=== PATIENT | male | born 1980 | race Caucasian/White ===

== ENCOUNTER 2017-09-08 10:18 | Emergency (ER) | payer SELFPAY ==
--- NOTE | 2017-09-08 10:20 | ER Report ---
History and Physical Time Seen By MD: 10:20 HPI/NALINI CHIEF COMPLAINT: Lightheaded and dizzy HISTORY OF PRESENT ILLNESS: Patient is a 36-year-old male who is here visiting his mother from [place]. He is presents to the emergency department because of an episode of lightheadedness while driving today. He states he's had these episodes over the past few months but they are becoming increasingly more frequent. He describes feeling lightheaded as if he is going to pass out although he is never had a syncopal episode. He does admit to some palpitations that occur with these episodes but denies any true chest pain. He denies headaches. Apparently he has history of the large atrial septal defect that was repaired in childhood. He is last cardiac echo was approximately 4-5 years ago and reported to be "normal". Patient does admit to drinking daily and smokes a pipe occasionally. Patient does have episodic abdominal discomfort associated with nausea. Patient denies any black or tarry stools. Patient has relatives that had similar symptoms and had brain cancer. This is his major concern. REVIEW OF SYSTEMS: Constitutional: No fever, no chills. Eyes: No discharge. ENT: No sore throat. Cardiovascular: No chest pain, occasional palpitations. Respiratory: No cough, no shortness of breath. Gastrointestinal: No abdominal pain, no vomiting. Nausea Genitourinary: No hematuria. Musculoskeletal: No back pain. Skin: No rashes. Neurological: No headache. Light headedness Allergies: Coded Allergies: No Known Drug Allergies (Unverified , 09/08/17) Home Meds No Active Prescriptions or Reported Meds Past Medical/Surgical History Noncontributory Constitutional Vital Sign - Last 24 Hours 09/08/17 09/08/17 09/08/17 09/08/17 10:23 10:24 10:30 10:48 Temp 98.3 Pulse 80 70 Resp 18 11 B/P (MAP) 142/87 (105) 142/87 130/82 (98) Pulse Ox 97 95 O2 Delivery Room Air 09/08/17 09/08/17 09/08/17 09/08/17 11:00 11:18 11:23 11:30 Pulse 75 71 Resp 22 9 B/P (MAP) 127/87 (100) 114/93 (100) Pulse Ox 97 98 5/509/08/17 09/08/17 12:32 12:38 12:43 Pulse 79 73 B/P (MAP) 123/83 (96) Pulse Ox 94 94 Physical Exam General/Constitutional: Patient is awake, alert, nontoxic and in no acute respiratory distress. Head: Normocephalic and atraumatic. Eyes: Conjunctival clear, Pupils are equal and reactive to light. Extraocular muscles are intact and symmetrical. Sclera are clear and anicteric. Ears:External canals are clear. Tympanic membranes are clear with normal landmarks and light reflex. Nares: No rhinorrhea or bleeding. Turbinates are pink and moist. Oropharyngeal: Mucous membranes are moist. There is no pharyngeal erythema or exudate. There are no palatal petechiae. Uvula is midline and symmetrical. Neck: Supple, no adenopathy. Cardiovascular: Heart is regular rate and rhythm without audible murmurs, rubs or gallops. Pulmonary: Lungs are clear to auscultation bilaterally. There are no wheezes, rales, or rhonchi. Chest rise is symmetrical Abdomen: Soft, nontender, no guarding or peritoneal signs. Extremities: No gross deformities, No peripheral cyanosis. Able to move all 4 extremities. Neuro: Alert and oriented X3, Cranial nerves 2 thru 12 are intact and symmetrical. Patient has normal gait. Skin: No rashes, skin is warm dry and well perfused. Medical Decision Making Data Points Result Diagram: 09/08/17 1112 09/08/17 1112 Laboratory Hematology Test 09/08/17 11:12 Red Blood Count 6.02 M/uL (4.00-5.60) Mean Corpuscular Volume 86.5 fL (80.0-96.0) Mean Corpuscular Hemoglobin 30.9 pg (26.0-33.0) Mean Corpuscular Hemoglobin Concent 35.7 g/dL (32.0-36.0) Red Cell Distribution Width 12.9 % (11.5-14.5) Mean Platelet Volume 7.6 fL (7.2-11.1) Neutrophils (%) (Auto) 81.9 % (39.4-72.5) Lymphocytes (%) (Auto) 11.7 % (17.6-49.6) Monocytes (%) (Auto) 5.4 % (4.1-12.4) Eosinophils (%) (Auto) 0.4 % (0.4-6.7) Basophils (%) (Auto) 0.6 % (0.3-1.4) Nucleated RBC Relative Count (auto) 0.1 /100WBC Neutrophils # (Auto) 6.6 K/uL (2.0-7.4) Lymphocytes # (Auto) 1.0 K/uL (1.3-3.6) Monocytes # (Auto) 0.4 K/uL (0.3-1.0) Eosinophils # (Auto) 0.0 K/uL (0.0-0.5) Basophils # (Auto) 0.1 K/uL (0.0-0.1) Nucleated RBC Absolute Count (auto) 0.01 K/uL Urine Color Straw Urine Clarity Clear Urine pH 8.0 pH (4.8-9.5) Urine Specific Reardan 1.006 Urine Protein Negative mg/dL (NEGATIVE) Urine Glucose (UA) Negative mg/dL (NEGATIVE) Urine Ketones Negative mg/dL (NEGATIVE) Urine Blood Negative (NEGATIVE) Urine Nitrite Negative (NEGATIVE) Urine Bilirubin Negative (NEGATIVE) Urine Urobilinogen Negative mg/dL (0.2-1.9) Urine Leukocyte Esterase Negative (NEGATIVE) Urine RBC None /HPF (0-2/HPF) Urine WBC None /HPF (0-5/HPF) Urine Squamous Epithelial Cells None /LPF (</=FEW) Urine Bacteria Negative /HPF (NONE-FEW) Urine Mucus None /HPF (NONE-FEW) Sodium Level 143 mmol/L (137-145) Potassium Level 4.3 mmol/L (3.5-5.0) Chloride Level 104 mmol/L (98-107) Carbon Dioxide Level 25 mmol/L (22-30) Blood Urea Nitrogen 12 mg/dl (9-21) Creatinine 1.00 mg/dl (0.66-1.25) Glomerular Filtration Rate Calc > 60.0 Random Glucose 117 mg/dl (75-110) Calcium Level 10.5 mg/dl (8.4-10.2) Total Bilirubin 0.9 mg/dl (0.2-1.3) Aspartate Amino Transf (AST/SGOT) 23 U/L (0-35) Alanine Aminotransferase (ALT/SGPT) 23 U/L (0-56) Alkaline Phosphatase 69 U/L (0-126) Troponin I < 0.012 ng/ml Total Protein 8.2 gm/dl (6.3-8.2) Albumin 5.1 g/dl (3.5-5.0) Lipase 119 U/L (23-300) Chemistry Test 09/08/17 11:12 White Blood Count 8.1 k/uL (4.5-11.0) Red Blood Count 6.02 M/uL (4.00-5.60) Hemoglobin 18.6 g/dL (14.0-18.0) Hematocrit 52.1 % (42.0-52.0) Mean Corpuscular Volume 86.5 fL (80.0-96.0) Mean Corpuscular Hemoglobin 30.9 pg (26.0-33.0) Mean Corpuscular Hemoglobin Concent 35.7 g/dL (32.0-36.0) Red Cell Distribution Width 12.9 % (11.5-14.5) Platelet Count 173 K/uL (150-450) Mean Platelet Volume 7.6 fL (7.2-11.1) Neutrophils (%) (Auto) 81.9 % (39.4-72.5) Lymphocytes (%) (Auto) 11.7 % (17.6-49.6) Monocytes (%) (Auto) 5.4 % (4.1-12.4) Eosinophils (%) (Auto) 0.4 % (0.4-6.7) Basophils (%) (Auto) 0.6 % (0.3-1.4) Nucleated RBC Relative Count (auto) 0.1 /100WBC Neutrophils # (Auto) 6.6 K/uL (2.0-7.4) Lymphocytes # (Auto) 1.0 K/uL (1.3-3.6) Monocytes # (Auto) 0.4 K/uL (0.3-1.0) Eosinophils # (Auto) 0.0 K/uL (0.0-0.5) Basophils # (Auto) 0.1 K/uL (0.0-0.1) Nucleated RBC Absolute Count (auto) 0.01 K/uL Urine Color Straw Urine Clarity Clear Urine pH 8.0 pH (4.8-9.5) Urine Specific Reardan 1.006 Urine Protein Negative mg/dL (NEGATIVE) Urine Glucose (UA) Negative mg/dL (NEGATIVE) Urine Ketones Negative mg/dL (NEGATIVE) Urine Blood Negative (NEGATIVE) Urine Nitrite Negative (NEGATIVE) Urine Bilirubin Negative (NEGATIVE) Urine Urobilinogen Negative mg/dL (0.2-1.9) Urine Leukocyte Esterase Negative (NEGATIVE) Urine RBC None /HPF (0-2/HPF) Urine WBC None /HPF (0-5/HPF) Urine Squamous Epithelial Cells None /LPF (</=FEW) Urine Bacteria Negative /HPF (NONE-FEW) Urine Mucus None /HPF (NONE-FEW) Glomerular Filtration Rate Calc > 60.0 Calcium Level 10.5 mg/dl (8.4-10.2) Total Bilirubin 0.9 mg/dl (0.2-1.3) Aspartate Amino Transf (AST/SGOT) 23 U/L (0-35) Alanine Aminotransferase (ALT/SGPT) 23 U/L (0-56) Alkaline Phosphatase 69 U/L (0-126) Troponin I < 0.012 ng/ml Total Protein 8.2 gm/dl (6.3-8.2) Albumin 5.1 g/dl (3.5-5.0) Lipase 119 U/L (23-300) Urinalysis Test 09/08/17 11:12 Urine Color Straw Urine Clarity Clear Urine pH 8.0 pH (4.8-9.5) Urine Specific Reardan 1.006 Urine Protein Negative mg/dL (NEGATIVE) Urine Glucose (UA) Negative mg/dL (NEGATIVE) Urine Ketones Negative mg/dL (NEGATIVE) Urine Blood Negative (NEGATIVE) Urine Nitrite Negative (NEGATIVE) Urine Bilirubin Negative (NEGATIVE) Urine Urobilinogen Negative mg/dL (0.2-1.9) Urine Leukocyte Esterase Negative (NEGATIVE) Urine RBC None /HPF (0-2/HPF) Urine WBC None /HPF (0-5/HPF) Urine Squamous Epithelial Cells None /LPF (</=FEW) Urine Bacteria Negative /HPF (NONE-FEW) Urine Mucus None /HPF (NONE-FEW) EKG/Imaging EKG Interpretation EKG shows normal sinus rhythm with ventricular rate of 84 bpm. Monitor Interpretation: Normal Sinus Rhythm Imaging FACILITY: [facility] PATIENT NAME: Braydon Prieto : 1980 MR: [id number] V: [id number] EXAM DATE: ORDERING PHYSICIAN: JON DEVI TECHNOLOGIST: Location: [facility] Patient: Braydon Prieto : 1980 Visit/Account:[id number] Date of Sevice: 09/08/2017 EXAMINATION: MRI Brain without IV contrast 09/08/2017 11:03 AM HISTORY: Dizziness, vertigo, blurry vision. Numbness in hands and feet. TECHNIQUE: Multi-planar, multi-sequence brain MRI was performed without IV contrast administration. COMPARISON STUDIES: none FINDINGS: Ventricles / sulci / fissures: negative Masses / hemorrhage / midline shift: negative White matter: negative Sams-white differentiation: negative Extra-axial spaces: negative Calvarium: negative Vascular structures: negative Sagittal midline structures: negative Paranasal sinuses / mastoid air cells: Mild mucosal thickening within paranasal sinuses most notably within the anterior ethmoids on the left. Rightward nasal septal deviation. Orbits: negative Visualized upper neck: negative IMPRESSION: 1. Unremarkable intracranial unenhanced MRI evaluation. No evidence of mass, stroke, or hemorrhage. 2. Mild likely chronic features of paranasal sinusitis. Report Dictated By: Gee Ross MD at 09/08/2017 12:36 PM Report E-Signed By: Gee Ross MD at 09/08/2017 12:40 PM WSN:[id number] ED Course/Re-evaluation Clinical Indication for ER IV: Hydration, IV Access ED Course 09/08/2017 11:37:11 am plan at this time will be workup to include CBC, has a metabolic panel with lipase. We will also obtain urinalysis and EKG. Perform MRI of the brain Decision to Disposition Date: September 08, 2017 Decision to Disposition Time: 12:50 Depart Departure Latest Vital Signs Vital Signs Date Time Temp Pulse Resp B/P (MAP) Pulse Ox O2 Delivery O2 Flow Rate FiO2 09/08/17 12:43 73 94 09/08/17 12:32 123/83 (96) 09/08/17 11:23 9 09/08/17 10:24 98.3 Room Air Impression: Primary Impression: Dizziness Condition: Improved Disposition: HOME OR SELF-CARE New Scripts No Active Prescriptions or Reported Meds Patient Instructions: Dizziness (ED) Additional Instructions: I recommend that he establish care with a primary care physician and your hometown of [place]. If the symptoms persist you should continue to follow up additional testing. JON DEVI MD September 08, 2017 10:20
[2017-09-08] MEDS ORDERED: NS(*) 0.9% 1000 ML BAG 1,000 ML IV ONE (11:03)
[2017-09-08] MEDS ORDERED: MECLIZINE HCL 25 MG TAB PO ONE (11:05)
--- NOTE | 2017-09-08 11:25 | EKG ---
FACILITY: [facility] [place] PATIENT NAME: QUINN BURNHAM : [id number] MR: [id number] V: [id number] EXAM DATE: ORDERING PHYSICIAN: JON DEVI TECHNOLOGIST: CHANDRAKANT Test Reason : DIZZY Blood Pressure : / mmHG Vent. Rate : 084 BPM Atrial Rate : 084 BPM P-R Int : 136 ms QRS Dur : 102 ms QT Int : 364 ms P-R-T Axes : 042 067 042 degrees QTc Int : 430 ms Sinus rhythm Nonspecific interventricular conduction delay Nonspecific ST findings inferolateral leads No previous ECGs available Confirmed by JUDIE COLLINS ([id number]) on 09/08/2017 2:09:45 PM Referred By: GISSELLE Confirmed By:JUDIE COLLINS
[2017-09-08 11:26] LABS: PLATELET COUNT, AUTOMATED 173 K/uL (150-450)
--- NOTE | 2017-09-08 11:53 | RADIOLOGY IMAGING REPORT ---
FACILITY: [facility] [place] PATIENT NAME: Braydon Prieto : 1980 MR: [id number] V: [id number] EXAM DATE: ORDERING PHYSICIAN: JON DEVI [place]CHNOLOGIST: [place] [facility] [place] Braydon Pri[place] : 1980 Visit/Account:[id number] Date of Sevice: 09/08/2017 Exam type: ORBITS FOREIGN BODY 1 VIEW History: Comparison: None. Findings: There are no radiopaque foreign bodies projecting over the orbits which would preclude this patient u ndergoing MRI. Paranasal sinuses are well aerated. Nasal septum is deviated towards the right. Left f rontal sinus is hypoplastic. Metallic dental hardware is noted. IMPRESSION: 1. There are no radiopaque foreign bodies projecting of the orbits which would preclude this patient undergoing MRI. Report Dictated By: Thomas Wills MD at 09/08/2017 11:50 AM Report E-Signed By: Thomas Wills MD at 09/08/2017 11:51 AM WSN:[id number]
[2017-09-08 12:32] VITALS: BP 123/83
--- NOTE | 2017-09-08 12:44 | RADIOLOGY IMAGING REPORT ---
FACILITY: [facility] PATIENT NAME: Braydon Prieto : 1980 MR: [id number] V: [id number] EXAM DATE: ORDERING PHYSICIAN: JON DEVI TECHNOLOGIST: Location: [facility] Patient: Braydon Prieto : 1980 Visit/Account:[id number] Date of Sevice: 09/08/2017 EXAMINATION: MRI Brain without IV contrast 09/08/2017 11:03 AM HISTORY: Dizziness, vertigo, blurry vision. Numbness in hands and feet. TECHNIQUE: Multi-planar, multi-sequence brain MRI was performed without IV contrast administration. COMPARISON STUDIES: none FINDINGS: Ventricles / sulci / fissures: negative Masses / hemorrhage / midline shift: negative White matter: negative Sams-white differentiation: negative Extra-axial spaces: negative Calvarium: negative Vascular structures: negative Sagittal midline structures: negative Paranasal sinuses / mastoid air cells: Mild mucosal thickening within paranasal sinuses most notably within the anterior ethmoids on the left. Rightward nasal septal deviation. Orbits: negative Visualized upper neck: negative IMPRESSION: 1. Unremarkable intracranial unenhanced MRI evaluation. No evidence of mass, stroke, or hemorrhage. 2. Mild likely chronic features of paranasal sinusitis. Report Dictated By: Gee Ross MD at 09/08/2017 12:36 PM Report E-Signed By: Gee Ross MD at 09/08/2017 12:40 PM WSN:[id number]
--- NOTE | 2017-09-09 15:59 | RT HOLTER TEST ---
[place] [facility] [place] QUINN BURNHAM : [id number] MR: [id number] V: [id number] EXAM DATE: ORDERING PHYSICIAN: JON DEVI TECHNOLOGIST: Kristel Hook-up date: 2017-09-08 13:20:00 Duration: 24:28:00 Test Indications: DIZZINESS Medications: NONE 45531 QRS complexes 24 Ventricular ectopics which represent <1 % of total QRS comp. 10 Supraventricular ectopics which represent <1 % of total QRS comp. * Paced QRS complexes which represent % of total QRS comp. VENTRICULAR ECTOPY 11 Isolated 0 Bigeminal Cycles 0 Couplets 1 Runs 13 Beats in Runs 13 Beats LONGEST at 157 BPM at 18:05:24 2017-09-08 13 Beats FASTEST at 157 BPM at 18:05:24 2017-09-08 SUPRAVENTRICULAR ECTOPY 10 Isolated 0 Couplets 0 Runs 0 Beats in Runs * Beats LONGEST at * BPM at :: -- * Beats FASTEST at * BPM at :: -- HEART RATES 37 MIN at 08:37:42 2017-09-09 64 AVG 117 MAX at 12:51:57 2017-09-09 LONGEST RR 2.088 secs at 08:28:08 2017-09-09 S-T LEVELS Channel 1 -12.800 mm MIN at 13:20:00 2017-09-08 -12.800 mm MAX at 13:20:00 2017-09-08 Channel 2 -12.800 mm MIN at 13:20:00 2017-09-0812.800 mm MAX at 13:20:00 2017-09-08 Channel 3 -12.800 mm MIN at 13:20:00 2017-09-0812.800 mm MAX at 13:20:00 2017-09-08 Maximum heart rate is sinus tachycardia at 117 beats per minute (BPM). Minimum heart rate is sinus br adycardia at 37 BPM. One 13 beat run of ventricular tachycardia was noted. There were 11 isolated PVCs. There were 10 isolated PACs with no r uns. Confirmed by SULTANA HINOJOSA ([id number]) on 09/09/2017 3:58:38 PM Referred By: Overread By: SULTANA HINOJOSA
== END 2017-09-08 13:26 | disposition home or self-care (01) ==
LOC: ER 10:21
DX: R42 Dizziness and giddiness (principal)
CPT/HCPCS: 70030; 70551; 81001; 83690; 84484; 85025; 93005; 93225; 96360; 99284; J7030; J8597; 82040; 82247; 82310; 82374; 82435; 82565; 82947; 84075; 84132; 84155; 84295; 84450; 84460; 84520; 93226

== ENCOUNTER → 2017-09-12 | Outpatient (CLI) | payer SELFPAY ==
[2017-09-12 14:21] LABS: LDL CHOLESTEROL 77 mg/dl
== END ==
LOC: LAB 13:04
PROVIDERS: ATTEND Internal Medicine Cardiovascular Disease
DX: I47.2 Ventricular tachycardia (principal)
CPT/HCPCS: 36415; 82040; 82247; 82310; 82374; 82435; 82465; 82565; 82947; 83718; 84075; 84132; 84155; 84295; 84450; 84460; 84478; 84520; 85027

== ENCOUNTER → 2017-09-13 | Outpatient (CLI) | payer SELFPAY ==
--- NOTE | 2017-09-14 12:42 | RADIOLOGY IMAGING REPORT ---
FACILITY: [facility] PATIENT NAME: Braydon Prieto : 1980 MR: [id number] V: [id number] EXAM DATE: ORDERING PHYSICIAN: JIM SHELBY TECHNOLOGIST: Location: [facility] Patient: Braydon Prieto : 1980 Visit/Account:[id number] Date of Sevice: 09/13/2017 EXAMINATION: Single Isotope SPECT Imaging with Exercise and Gated SPECT Imaging DATE OF EXAMINATION: 09/13/2017 DATE OF INTERPRETATION: 09/14/2017 REQUESTING PHYSICIAN: JIM HSELBY INDICATION: The patient is a 36-year-old male evaluated for nonsustained VT, dizziness, fatigue. PROCEDURE: After informed consent the patient received an intravenous injection of 11.5 mCi of Tc-9 9m sestamibi followed at the appropriate time interval by rest imaging. The patient then exercised a ccording to the standard Cristóbal protocol for 10:42 minutes achieving 11 METS. Resting heart rate was 78 bpm with a peak heart rate of 179 bpm which is 96 % of maximal predicted heart rate for age. Blo od pressure at rest was 128 / 77; blood pressure during exercise was 155 / 70. There was no chest pa in during exercise. Exercise was discontinued because of fatigue. Baseline EKG demonstrates normal sinus rhythm, no ST or T-wave abnormalities. There were no EKG changes of ischemia at peak exercise. Approximately one minute and 30 seconds prior to the termination of exercise, the patient received an intravenous injection of 29.1 mCi of Tc-99m sestamibi followed by stress imaging. RAW DATA: Examination of the summed raw data revealed a good quality study. MYOCARDIAL PERFUSION: The tomographic images demonstrate mild inferoseptal defect at rest and stress that corrects with prone imaging suggesting diaphragmatic attenuation. GATED IMAGES: The gated images demonstrate hypokinetic septal wall, ejection fraction 63% IMPRESSION: 1. Good quality study with diaphragmatic attenuation 2. Normal myocardial perfusion scan. 3. Septal wall hypokinesis LV systolic function; LVEF 63%. 4. Based on the results of this exam, the patient appears to be at low risk for future cardiovascular events. Report Dictated By: Naif Hobbs at 09/14/2017 12:35 PM Report E-Signed By: Naif Hobbs at 09/14/2017 12:39 PM WSN:[id number]
== END ==
LOC: NUC 01:38
PROVIDERS: ATTEND Internal Medicine Cardiovascular Disease
DX: I47.2 Ventricular tachycardia (principal)
CPT/HCPCS: 78452; 93017; A9500

== ENCOUNTER → 2017-09-14 | Outpatient (CLI) | payer SELFPAY ==
--- NOTE | 2017-09-20 16:28 | RADIOLOGY IMAGING REPORT ---
FACILITY: [facility] [place] PATIENT NAME: QUINN BURNHAM : [id number] MR: [id number] V: [id number] EXAM DATE: [id number] ORDERING PHYSICIAN: JIM SHELBY TECHNOLOGIST: Liseth Redmond EXAMINATION:TWO-DIMENSIONAL ECHOCARDIOGRAPH REASON:HEART MURMUR 2D Measurements (normal values in centimeters) LV endLV endRV endVent.LV PostAorticLeftPercent DiastolicSystolicDiastolicSeptumWallRootAtriumShortening (3.5-5.7)(0.9-2.6)(0.6-1.1)(0.6-1.1)(2.0-3.7)(1.9-4.0)(25-35%) 5.63.23.1.70.672.63.143% STROKE VOLUME: 145ml ESTIMATED EJECTION FRACTION:65% RESULTS; 1. The left ventricle was mildly enlarged. All segments contracted briskly. LVEF = 65%. 2. The left atrium was normal in size. 3. The right heart chambers were normal in size. 4. There was a bicuspid aortic valve present. There was no associated aortic stenosis or regurgitation. 5. The aortic root was not significantly enlarged. 6. The tricuspid valve was normal in appearance. 7. The mitral valve was normal in appearance. 8. No pericardial effusion present. OVERALL IMPRESSION: 1. Bicuspid aortic valve without associated aortic valvular stenosis or regurgitation. There is no evidence of significant aortic root enlargement. The left ventricular function is normal, with an LVEF = 65%. The right heart chambers were normal in size. Dictated by: Javier Stoll on 09/14/2017 at 15:47 Transcribed by: ZOILA on 09/17/2017 at 9:27 Approved by: Javier Stoll on 09/19/2017 at 14:59 [facility]
== END ==
LOC: US 02:13
PROVIDERS: ATTEND Internal Medicine Cardiovascular Disease
DX: I47.2 Ventricular tachycardia (principal)
CPT/HCPCS: 93306